=== PATIENT | male | born 1985 | race Caucasian/White ===

== ENCOUNTER 2021-02-21 16:45 | Emergency (ER) | payer OTHER ==
[2021-02-21 17:06] VITALS: BMI 37.5
[2021-02-21] MEDS ORDERED: ACETAMINOPHEN 325 MG TABLET (FP) PO ONE (17:58)
[2021-02-21] MEDS ORDERED: IBUPROFEN 600 MG TABLET (FP) PO PRN (17:58)
[2021-02-21] MEDS ORDERED: ACETAMINOPHEN 325 MG TABLET (FP) ONE (18:22)
[2021-02-21] MEDS ORDERED: IBUPROFEN 600 MG TABLET (FP) PO ONE (18:22)
[2021-02-21 22:32] VITALS: TEMP 98.3
[2021-02-21 23:43] VITALS: BP 142/95; PULSE 70
== END 2021-02-21 23:50 | disposition short-term general hospital (02) ==
LOC: JER 16:45
DX: S52.351B Displaced comminuted fracture of shaft of radius, right arm, initial encounter for open fracture type I or II (principal); V89.2XXA Person injured in unspecified motor-vehicle accident, traffic, initial encounter
CPT/HCPCS: 73060-TC-RT-FY; 73070-TC-RT-FY; 73090-TC-RT-FY; 99285-25